=== PATIENT | female | born 1985 | race Caucasian/White ===

== ENCOUNTER 2021-04-25 15:20 | Emergency (ER) | payer OTHER ==
[~2021-04-25] VITALS: Ht 157.5 cm; Wt 93.0 kg
[2021-04-25 16:13] LABS: BASOPHILS ABSOLUTE AUTO 0.08 K/mm3 (0.00-0.23); BASOPHILS PERCENT AUTO 1 % (0-2); EOSINOPHILS ABSOLUTE AUTO 0.38 K/mm3 (0.00-0.68); EOSINOPHILS PERCENT AUTO 4 % (0-6); Hemoglobin 15.4 g/dL (11.5-16.0); IMMATURE GRAN ABSOLUTE AUTO 0.02 K/mm3 (0.00-0.10); IMMATURE GRAN PERCENT AUTO 0 % (0-1); LYMPHOCYTES ABSOLUTE AUTO 1.54 K/mm3 (0.84-5.20); LYMPHOCYTES PERCENT AUTO 16 % (21-46); MONOCYTES ABSOLUTE AUTO 0.79 K/mm3 (0.16-1.47); MONOCYTES PERCENT AUTO 8 % (4-13); Mean Corpuscular HGB 31.4 pg (26.0-34.0); Mean Corpuscular HGB Conc 34.2 g/dL (31.5-36.5); Mean Corpuscular Volume 92 fL (80-100); Mean Platelet Volume 10.4 fL (9.1-12.4); NEUTROPHILS ABSOLUTE AUTO 6.58 K/mm3 (1.96-9.15); NEUTROPHILS PERCENT AUTO 70 % (41-73); Platelet Count 262 K/mm3 (150-400); RDW Coefficient Variation 12.9 % (11.7-14.2); RDW Standard Deviation 43.5 fL (35.1-46.3); White Blood Cell Count 9.39 K/mm3 (4.00-11.30)
[2021-04-25 16:32] LABS: Alanine Aminotransfer (ALT/SGP 58 U/L (12-78); Albumin, Blood 3.6 g/dL (3.4-5.0); Albumin/Globulin Ratio 0.9 (0.8-1.8); Alk Phos 85 U/L (50-136); Anion Gap 6 mmol/L (6-16); Aspartate Aminotrans (AST/SGOT 41 U/L (12-37); Bilirubin, Total 0.5 mg/dL (0.1-1.0); Blood Urea Nitrogen 12 mg/dL (8-24); Bun/Creatinine Ratio 17.8 (12.0-20.0); CO2, Blood 25 mmol/L (21-32); Chloride, Blood 107 mmol/L (98-108); Creatinine, Blood 0.67 mg/dL (0.40-1.00); Globulin, Blood 3.8 g/dL (2.2-4.0); Glomerular Filtration Rate >60 (60-); Glucose, Blood 88 mg/dL (70-99); Potassium, Blood 4.1 mmol/L (3.5-5.5); Sodium, Blood 138 mmol/L (136-145); Total Protein, Blood 7.4 g/dL (6.4-8.2)
[2021-04-25] MEDS ORDERED: MONT10T PO (16:34)
[2021-04-25] MEDS ORDERED: ALBU90OI INH (16:34)
[2021-04-25] MEDS ORDERED: FLUT1DIS5 INH (16:34)
[2021-04-25] MEDS ORDERED: LACT PO (16:35)
[2021-04-25] MEDS ORDERED: OMEP20ER PO (16:35)
[2021-04-25 17:20] LABS: Source, Urine Clean Catch
[2021-04-25 17:20] LABS: Free Thyroxine 0.92 ng/dL (0.70-1.60); Magnesium, Blood 1.9 mg/dL (1.6-2.4)
[2021-04-25 17:21] LABS: Thyroid Stimulating Hormone 1.95 uIU/mL (0.360-4.800)
[2021-04-25 17:33] LABS: Appearance, Urine Clear (Clear); Bilirubin, Urine Neg (Neg); Blood, Urine Neg (Neg); Color, Urine Yellow (P-Yellow); Glucose Qualitative, Urine Neg (Neg); Ketones, Urine 3+ (Neg); Leukocyte Esterase, Urine Neg (Neg); Nitrite, Urine Neg (Neg); Protein, Urine Neg (Neg); Specific Gravity, Urine 1.005 (1.003-1.022); Urobilinogen, Urine NORM (Normal)
== END 2021-04-25 17:57 | disposition home or self-care (01) ==
LOC: ER 15:20
PROVIDERS: Emergency Medicine; Physician Assistant
DX: R55 Syncope and collapse (principal); F43.9 Reaction to severe stress, unspecified; Z91.018 Allergy to other foods; Z91.013 Allergy to seafood; Z79.899 Other long term (current) drug therapy; K21.9 Gastro-esophageal reflux disease without esophagitis; J45.909 Unspecified asthma, uncomplicated
CPT/HCPCS: 36415; 80053; 81003; 81025; 83735; 84439; 84443; 85025; 93005; 93010; 99284-25

== ENCOUNTER 2021-07-23 11:22 | Emergency (ER) | payer OTHER ==
[~2021-07-23] VITALS: Ht 157.5 cm; Wt 93.0 kg
[~2021-07-23 11:22] MED LIST: ALBU90OI INH; FLUT1DIS5 INH; LACT PO; LORA.5 PO; MONT10T PO; OMEP20ER PO
[2021-07-23 12:38] LABS: BASOPHILS ABSOLUTE AUTO 0.08 K/mm3 (0.00-0.23); BASOPHILS PERCENT AUTO 1 % (0-2); EOSINOPHILS PERCENT AUTO 5 % (0-6); Hematocrit 46.1 % (33.0-51.0); Hemoglobin 15.3 g/dL (11.5-16.0); IMMATURE GRAN ABSOLUTE AUTO 0.01 K/mm3 (0.00-0.10); IMMATURE GRAN PERCENT AUTO 0 % (0-1); LYMPHOCYTES ABSOLUTE AUTO 1.46 K/mm3 (0.84-5.20); LYMPHOCYTES PERCENT AUTO 25 % (21-46); MONOCYTES ABSOLUTE AUTO 0.51 K/mm3 (0.16-1.47); MONOCYTES PERCENT AUTO 9 % (4-13); Mean Corpuscular HGB 31.2 pg (26.0-34.0); Mean Corpuscular HGB Conc 33.2 g/dL (31.5-36.5); Mean Corpuscular Volume 94 fL (80-100); Mean Platelet Volume 10.3 fL (9.1-12.4); NEUTROPHILS ABSOLUTE AUTO 3.51 K/mm3 (1.96-9.15); NEUTROPHILS PERCENT AUTO 60 % (41-73); Platelet Count 254 K/mm3 (150-400); RDW Coefficient Variation 12.6 % (11.7-14.2); RDW Standard Deviation 43.8 fL (35.1-46.3); Red Blood Cell Count 4.91 M/mm3 (3.80-5.20); White Blood Cell Count 5.87 K/mm3 (4.00-11.30)
[2021-07-23 12:55] LABS: Albumin, Blood 3.6 g/dL (3.4-5.0); Bilirubin, Total 0.5 mg/dL (0.1-1.0); Calcium, Blood 8.7 mg/dL (8.5-10.1); Creatinine, Blood 0.6 mg/dL (0.40-1.00); Globulin, Blood 3.6 g/dL (2.2-4.0); Potassium, Blood 3.9 mmol/L (3.5-5.5); Total Protein, Blood 7.2 g/dL (6.4-8.2)
[2021-07-23] MEDS ORDERED: Lopressor 25 mg25 MG PO (14:04)
== END 2021-07-23 14:20 | disposition home or self-care (01) ==
LOC: ER 11:22
PROVIDERS: Physician Assistant
DX: I10 Essential (primary) hypertension (principal); J45.909 Unspecified asthma, uncomplicated; K21.9 Gastro-esophageal reflux disease without esophagitis; Z79.899 Other long term (current) drug therapy
CPT/HCPCS: 36415; 71045; 80053; 84484; 85025

== ENCOUNTER → 2023-01-21 | Outpatient (CLI) | payer OTHER ==
[~2023-01-21] MED LIST changes: +Lopressor 25 mg25 MG PO
[2023-01-23 14:08] LABS: HPV 16 Negative (Negative); HPV 18 Negative (Negative); HPV OTHER HR TYPES Negative (Negative)
== END ==
LOC: LAB SHORT 13:41 → LAB 13:41
PROVIDERS: Family Medicine
DX: Z01.419 Encounter for gynecological examination (general) (routine) without abnormal findings (principal)
CPT/HCPCS: 87624; G0145

== ENCOUNTER 2024-02-28 12:33 | Observation (INO) | payer OTHER ==
[2024-02-28 13:35] LABS: BASOPHILS ABSOLUTE AUTO 0.08 K/mm3 (0.00-0.23); BASOPHILS PERCENT AUTO 1 % (0-2); EOSINOPHILS PERCENT AUTO 8 % (0-6); Hematocrit 44.8 % (33.0-51.0); Hemoglobin 15.3 g/dL (11.5-16.0); IMMATURE GRAN ABSOLUTE AUTO 0.02 K/mm3 (0.00-0.10); IMMATURE GRAN PERCENT AUTO 0 % (0-1); LYMPHOCYTES ABSOLUTE AUTO 1.54 K/mm3 (0.84-5.20); LYMPHOCYTES PERCENT AUTO 24 % (21-46); MONOCYTES ABSOLUTE AUTO 0.59 K/mm3 (0.16-1.47); MONOCYTES PERCENT AUTO 9 % (4-13); Mean Corpuscular HGB 32.4 pg (26.0-34.0); Mean Corpuscular HGB Conc 34.2 g/dL (31.5-36.5); Mean Corpuscular Volume 95 fL (80-100); NEUTROPHILS ABSOLUTE AUTO 3.61 K/mm3 (1.96-9.15); NEUTROPHILS PERCENT AUTO 57 % (41-73); Platelet Count 224 K/mm3 (150-400); RDW Coefficient Variation 12.5 % (11.7-14.2); RDW Standard Deviation 43.7 fL (35.1-46.3); Red Blood Cell Count 4.72 M/mm3 (3.80-5.20); White Blood Cell Count 6.34 K/mm3 (4.00-11.30)
[2024-02-28 13:43] LABS: Source, Urine Clean Catch
[2024-02-28 13:47] LABS: Appearance, Urine Clear (Clear); Bilirubin, Urine Neg (Neg); Blood, Urine Neg (Neg); Color, Urine Yellow (P-Yellow); Glucose Qualitative, Urine Neg (Neg); Ketones, Urine 1+ (Neg); Leukocyte Esterase, Urine Neg (Neg); Nitrite, Urine Neg (Neg); Protein, Urine Neg (Neg); Urobilinogen, Urine NORM (Normal)
[2024-02-28 13:54] LABS: Albumin, Blood 3.5 g/dL (3.4-5.0); Albumin/Globulin Ratio 0.9 (0.8-1.8); Bilirubin, Total 0.6 mg/dL (0.1-1.0); Bun/Creatinine Ratio 17.3 (12.0-20.0); Calcium, Blood 9.3 mg/dL (8.5-10.1); Creatinine, Blood 0.58 mg/dL (0.40-1.00); Globulin, Blood 3.7 g/dL (2.2-4.0); Potassium, Blood 3.6 mmol/L (3.5-5.5); Total Protein, Blood 7.2 g/dL (6.4-8.2)
[2024-02-28] MEDS ORDERED: Labetalol HCL 5 MG/ML 4ML Injection (Single Dose) IV ONE ×2 (15:20→16:15)
[2024-02-28] MEDS ORDERED: AmLODIPine Besylate 5 MG Tab PO ONE (19:05)
[2024-02-28] MEDS ORDERED: Magnesium Hydroxide Conc 10 ML UDC PO PRN (19:20)
[2024-02-28] MEDS ORDERED: TraZODone HCl 50 MG Tab PO PRN (19:20)
[2024-02-28] MEDS ORDERED: FLU VACC TS2024-25(6MOS UP)/PF 45 MCG/0.5 ML SYRINGE IM SCH (19:20)
[2024-02-28] MEDS ORDERED: Albuterol HFA200 ACT/6.7 GM INH INH PRN (19:25)
[2024-02-28] MEDS ORDERED: Mometasone/Formoterol MDI 100/5 mcg 13 GM INH SCH (19:25)
[2024-02-28] MEDS ORDERED: Loratadine 10 MG Tab PO PRN (19:30)
[2024-02-28] MEDS ORDERED: Metoprolol Tartrate 25 MG Tab PO SCH (21:00)
[2024-02-28 21:11] VITALS: BP 184/111
[2024-02-28] MEDS ORDERED: Ibuprofen 600 MG Tab PO ONE (22:25)
[2024-02-28 23:15] VITALS: BP 179/112
[2024-02-28 23:17] VITALS: BP 154/92
[2024-02-28 23:39] VITALS: BP 149/105
[2024-02-29 05:12] VITALS: BP 139/101
--- NOTE | 2024-02-29 07:06 | NUR ---
BP HAS GRADUALLY IMPROVED THROUGHOUT SHIFT MOST RECENTLY 139/101. PT REPORTS SX (VISUAL CHANGES,TINGLING,CHEST PRESSURE,ABD TIGHTNESS) WERE SOMEWHAT IMPROVED, HEADACHE DOWN TO 4/10 FROM 09/16 ,RECEIVED ONE TIME DOSE IBOPROFEN 600MG OVERNIGHT,TOOK WITH FOOD, TOOK PRN TRAZADONE AND WAS EFEFCTIVE.
[2024-02-29 07:18] VITALS: BP 155/109
--- NOTE | 2024-02-29 08:30 | NUR ---
pt laying in bed awake, with breakfast in front of her, states no appetite, a/ox4, pleasant and coopertive with care, follows commands well, denies pain, lungs are clear on r/a, no cough, hrr, no edema noted, ppp+2, cap refill <3 sec, vs stable, afebrile, piv site is clear and patent, btx4, abd flat soft nontender, voids without diff, skin c/w/d, maew, deneen, call light in reach.
[2024-02-29 13:19] VITALS: BP 143/95
[2024-02-29] MEDS ORDERED: AMLO10 PO (14:30)
[2024-02-29] MEDS ORDERED: AmLODIPine Besylate 5 MG Tab PO ONE (14:40)
[2024-02-29] MEDS ORDERED: METO25 PO (14:57)
--- NOTE | 2024-02-29 15:04 | NUR ---
PT HAS BEEN DISCHARGED TO HOME, NEW MEDS FAXED TO [facility], IV REMOVED INTACT, WENT OVER INSTRUCTIONS, SHE VERBALIZED UNDERSTANDING. LEFT VIA AMBULATION WITH ALL HER BELONGINGS AND SPOUCE.
[2024-02-29] MEDS ORDERED: AmLODIPine Besylate 5 MG Tab PO SCH (18:00)
[2024-03-04 10:24] LABS: ALDOSTERONE 7.2 ng/dL; ALDOSTERONE/RENINACTIVITY CALC 71.5 ratio (<=25.0); RENIN ACTIVITY 0.1 ng/mL/hr
== END 2024-02-29 15:05 | disposition home or self-care (01) ==
LOC: ER 12:33 → MEDS 12:34
PROVIDERS: Physician Assistant; ADMIT Internal Medicine
DX: I10 Essential (primary) hypertension (principal); I16.1 Hypertensive emergency; J45.909 Unspecified asthma, uncomplicated; K21.9 Gastro-esophageal reflux disease without esophagitis; Z79.899 Other long term (current) drug therapy; Z91.010 Allergy to peanuts; Z91.013 Allergy to seafood; Z91.018 Allergy to other foods
CPT/HCPCS: 36415; 70450; 71046; 80053; 81003; 82088; 84244; 84443; 84484; 84702; 85025; 93005; 93010; 96374; 96376; 99285-25; A9270; G0378